=== PATIENT | male | born 1995 | race Caucasian/White ===

== ENCOUNTER 2017-04-13 23:07 | Emergency (ER) | payer SELFPAY ==
[~2017-04-13] VITALS: Ht 177.8 cm; Wt 69.9 kg
[2017-04-14] MEDS ORDERED: HYDROcodone/APAP 5/325 TABLET ONE (00:14)
[2017-04-14 00:30] VITALS: BP 121/85
[2017-04-14] MEDS ORDERED: HYDROcodone/APAP 5/325 TABLET PO ONE (00:30)
== END 2017-04-14 00:49 | disposition home or self-care (01) ==
LOC: ED 04-14 00:05
DX: S69.91XA Unspecified injury of right wrist, hand and finger(s), initial encounter (principal); F17.210 Nicotine dependence, cigarettes, uncomplicated; W11.XXXA Fall on and from ladder, initial encounter; Y93.89 Activity, other specified; Y92.009 Unspecified place in unspecified non-institutional (private) residence as the place of occurrence of the external cause; Y99.8 Other external cause status
CPT/HCPCS: 29125; 99284

== ENCOUNTER 2017-05-16 15:08 | Emergency (ER) | payer SELFPAY ==
[~2017-05-16] VITALS: Ht 177.8 cm; Wt 69.3 kg
[2017-05-16] MEDS ORDERED: DIPH,PERTUSS(ACELL),TET VAC/PF 0.5 ML IM-VACC ONE ×2 (15:30→16:03)
[2017-05-16] MEDS ORDERED: CEFTRIAXONE 1,000 MG IM ONE (15:30)
[2017-05-16 16:02] LABS: MEAN CORPUSCULAR HEMOGLOBIN 31.4 pg (27.5-34.5); MEAN CORPUSCULAR HGB CONC 34.1 g/dL (33.2-36.2); MEAN CORPUSCULAR VOLUME 92.1 fL (81-97); PLATELET COUNT 262 x10^3/uL (130-400); RED BLOOD COUNT 4.91 x10^6/uL (4.38-5.82); RED CELL DISTRIBUTION WIDTH 13.9 % (9.4-14.8)
[2017-05-16] MEDS ORDERED: CEFTRIAXONE 1,000 MG ONE (16:03)
[2017-05-16] MEDS ORDERED: LIDOCAINE-MPF 1%, 5ML ONE (16:03)
[2017-05-16 16:25] LABS: MD YES
[2017-05-16 16:29] LABS: <PLATELET ESTIMATE> ADEQUATE; <PLT MORPHOLOGY> NORMAL PLT MORPH; BAND#(MANUAL) 0.77 x10^3/uL; BANDS%(MANUAL) 3 % (0-7); LYMPH#(MANUAL) 1.81 x10^3/uL (1-3.4); LYMPHS% (MANUAL) 7 % (22-44); MONOS#(MANUAL) 0.77 x10^3/uL (0.3-2.7); MONOS% (MANUAL) 3 % (2-9); SEG#(MANUAL) 22.45 x10^3/uL (1.8-6.8); SEGS% (MANUAL) 87 % (42-75)
[2017-05-16 16:36] LABS: <RBC MORPHOLOGY> NORMAL
[2017-05-16] MEDS ORDERED: CLINDAMYCIN PMX 900MG/50ML 50 ML ONE (16:57)
[2017-05-16] MEDS ORDERED: CLINDAMYCIN PMX 900MG/50ML 50 ML IV ONE (17:00)
[2017-05-16] MEDS ORDERED: SODIUM CHLORIDE 0.9% 1,000ML IVBOLUS ONE (17:00)
[2017-05-16 17:31] LABS: ALANINE AMINOTRANSFERASE 25 U/L (12-78); ALBUMIN 4.5 g/dL (3.4-5.0); ANION GAP 9 mmol/L (5-15); CHLORIDE 101 mmol/L (98-107); CREATININE 1.33 mg/dL (0.7-1.3)
[2017-05-16 17:33] LABS: ALKALINE PHOSPHATASE 70 U/L (45-117); BILIRUBIN,TOTAL 1.6 mg/dL (0.2-1.0); TOTAL PROTEIN 7.9 g/dL (6.4-8.2)
[2017-05-16 17:39] VITALS: BP 128/62
== END 2017-05-16 19:30 | disposition home or self-care (01) ==
LOC: ED 18:27
DX: L03.011 Cellulitis of right finger (principal); L03.123 Acute lymphangitis of right upper limb; R50.81 Fever presenting with conditions classified elsewhere
CPT/HCPCS: 36415; 73130; 80053; 85025; 87040; 90471; 90715; 96365; 96366; 96372; 99285; J0696; J7030

== ENCOUNTER 2019-05-22 05:29 | Emergency (ER) | payer SELFPAY ==
[~2019-05-22] VITALS: Ht 177.8 cm; Wt 78.4 kg
--- NOTE | 2019-05-22 05:44 | NUR ---
Pt presents to room reporting redness and swelling to his right 4th finger for 2-3 days. Pt states he attempted to drain the finger at home with some results. Pt denies fever with symptoms. Pt has some redness spreading to his right hand and forearm.
[2019-05-22] MEDS ORDERED: LIDOCAINE-MPF 1%, 5ML ONE (05:53)
[2019-05-22] MEDS ORDERED: DIPH,PERTUSS(ACELL),TET VAC/PF 0.5 ML IM-VACC ONE ×2 (05:54→06:00)
[2019-05-22] MEDS ORDERED: LIDOCAINE-MPF 1%, 5ML INFIL ONE (06:00)
[2019-05-22] MEDS ORDERED: NEOSPORIN OINT. PKT 1 PACKET ONE (06:33)
[2019-05-22 06:46] VITALS: BP 151/58
== END 2019-05-22 06:48 | disposition home or self-care (01) ==
LOC: ED 05:56
DX: L03.011 Cellulitis of right finger (principal); F17.210 Nicotine dependence, cigarettes, uncomplicated
CPT/HCPCS: 10060; 90471; 90715; 99283